=== PATIENT | female | born 1955 | race Caucasian/White ===

== ENCOUNTER 2019-01-03 06:12 | Day surgery (SDC) | payer MEDICARE, OTHER ==
[2019-01-03] MEDS ORDERED: IODIXANOL 320MG/ML 100 ML BOTTLE IV ONE (07:33)
[2019-01-03] MEDS ORDERED: LIDOCAINE HCL 1% 20ML VIAL (Pyxis) INJ ONE (07:33)
[2019-01-03] MEDS ORDERED: IOHEXOL-300 100 ML BOTTLE ONE (07:40)
[2019-01-03] MEDS ORDERED: FENTANYL CITRATE/PF 50MCG/ML 2ML VIAL ONE (07:45)
[2019-01-03] MEDS ORDERED: MIDAZOLAM HCL 2 MG/2 ML VIAL ONE (07:45)
[2019-01-03 07:48] LABS: HEMOGLOBIN 13.6 g/dL (12.0-16.0); MEAN CORPUSCULAR HEMOGLOBIN 32.1 pg (28.0-32.0); MEAN CORPUSCULAR VOLUME 94.5 fL (81.0-99.0); PLATELET 129 x1000/uL (130-400); RED BLOOD CELL COUNT 4.23 mill/uL (4.2-5.4); RED CELL DISTRIBUTION WIDTH 14.5 % (11.6-14.6)
[2019-01-03] MEDS ORDERED: CALC668T MT (08:20)
[2019-01-03] MEDS ORDERED: GABA-531 MT (08:20)
[2019-01-03] MEDS ORDERED: FURO80TA3 MT (08:20)
[2019-01-03] MEDS ORDERED: MULT-1146 MT (08:20)
[2019-01-03] MEDS ORDERED: INSLIS SUBCUT (08:20)
[2019-01-03] MEDS ORDERED: INSU100V36 SQ (08:20)
[2019-01-03] MEDS ORDERED: SPIR25TA6 MT (08:20)
[2019-01-03] MEDS ORDERED: CHOL200077 MT (08:20)
[2019-01-03] MEDS ORDERED: PRAV40TA58 MT (08:20)
[2019-01-03] MEDS ORDERED: LIRA0.6P2 SQ (08:22)
[2019-01-03 08:37] LABS: INR 1.1; PROTHROMBIN TIME 10.9 sec (9.6-11.0)
[2019-01-03] MEDS ORDERED: HEPARIN SODIUM 1,000 UNIT/1ML VIAL IV ONE (09:00)
[2019-01-03] MEDS ORDERED: NITROGLYCERIN 50MCG/ML 10ML VIAL (CATH LAB) IV ONE (09:00)
[2019-01-03] MEDS ORDERED: NICARDIPINE 100MCG/ML 10ML VIAL (CATH LAB) IV ONE (09:00)
[2019-01-03] MEDS ORDERED: ONDANSETRON HCL 4MG/2ML INJ IV PRN (09:30)
[2019-01-03] MEDS ORDERED: ACETAMINOPHEN 325MG TABLET PO PRN (09:30)
[2019-01-03] MEDS ORDERED: ATROPINE SULFATE 1MG/10ML SYR IV PRN (09:30)
== END 2019-01-03 14:00 | disposition home or self-care (01) ==
LOC: CCL 06:12
PROVIDERS: ATTEND Specialist
DX: R07.89 Other chest pain (principal); I25.10 Atherosclerotic heart disease of native coronary artery without angina pectoris; I12.0 Hypertensive chronic kidney disease with stage 5 chronic kidney disease or end stage renal disease; E11.22 Type 2 diabetes mellitus with diabetic chronic kidney disease; N18.6 End stage renal disease; E88.81 Metabolic syndrome and other insulin resistance; E78.5 Hyperlipidemia, unspecified; Z79.4 Long term (current) use of insulin; Z79.899 Other long term (current) drug therapy; Z99.2 Dependence on renal dialysis; Z88.2 Allergy status to sulfonamides; Z88.8 Allergy status to other drugs, medicaments and biological substances; Z98.890 Other specified postprocedural states
CPT/HCPCS: 36415; 80048; 85027; 85610; 93458; 99152; 99153; C1769; C1887; C1893; J1644; J2250; J3010; J3490; Q9967

== ENCOUNTER 2020-09-02 14:29 | Inpatient (IN) | payer MEDICARE, OTHER ==
[~2020-09-02] VITALS: Ht 170.2 cm; Wt 98.5 kg
[~2020-09-02 14:29] MED LIST: CALC668T MT; CHOL200077 MT; FURO80TA3 MT; GABA-532 MT; INSLIS SUBCUT; INSU100V36 SQ; LIRA0.6P2 SQ; MULT-1146 MT; PRAV40TA58 MT; SPIR25TA6 MT
[2020-09-02] MEDS ORDERED: MORPHINE SULFATE 4 MG/ML CPJ (NOT FOR IM USE) IV STA (15:10)
[2020-09-02] MEDS ORDERED: ONDANSETRON HCL 4MG/2ML INJ IV ONE (15:15)
[2020-09-02 17:25] LABS: BASOPHILS % 0.4 % (0.0-2.0); EOSINOPHILS % 0.5 % (0.0-5.0); HEMATOCRIT. 33.7 % (36.0-48.0); HEMOGLOBIN. 11.5 g/dL (12.0-16.0); MEAN CORPUSCULAR HEMOGLOBIN 31.9 pg (28.0-32.0); MEAN CORPUSCULAR VOLUME 93.1 fL (81.0-99.0); MEAN PLATELET VOLUME 9.9 fl (7.4-10.4); MONOCYTES % 3.1 % (2.0-8.0); PLATELET 174 x1000/uL (130-400); RED BLOOD CELL COUNT 3.62 mill/uL (4.2-5.4); RED CELL DISTRIBUTION WIDTH 14.9 % (11.6-14.6)
[2020-09-02] MEDS ORDERED: HYDROCODONE/ACETAMINOPHEN 5/325MG TABLET PO ONE (19:45)
[2020-09-02] MEDS ORDERED: ACETAMINOPHEN 325MG TABLET PO PRN ×2 (21:45)
[2020-09-02] MEDS ORDERED: HYDRALAZINE 20MG/ML VIAL IV PRN (21:45)
[2020-09-02] MEDS ORDERED: ONDANSETRON HCL 4MG/2ML INJ IV PRN (21:45)
[2020-09-02] MEDS ORDERED: DIPHENHYDRAMINE 50MG/ML VIAL IV PRN (21:45)
[2020-09-02] MEDS ORDERED: ZOLPIDEM TARTRATE 5MG TABLET PO PRN (21:45)
[2020-09-02] MEDS ORDERED: DEXTROSE 50% WATER 50ML SYRINGE IV PRN (21:45)
[2020-09-02] MEDS ORDERED: CLONIDINE 0.1MG TABLET PO PRN (21:45)
[2020-09-02] MEDS ORDERED: MAGNESIUM/ALUMINUM HYDROXIDE/SIMETHICONE 30ML UDC PO PRN (21:45)
[2020-09-02] MEDS ORDERED: HYDROMORPHONE HCL/PF 2MG/ML CPJ IV PRN (22:00)
[2020-09-02] MEDS ORDERED: IOHEXOL-300 100 ML BOTTLE ONE (22:20)
[2020-09-02 23:29] LABS: CLARITY URINE TURBID (CLEAR); COLOR URINE YELLOW (YELLOW); KETONES URINE TRACE (NEGATIVE); LEUKOCYTE ESTERASE URINE 3+ (NEGATIVE); NITRITE URINE NEGATIVE (NEGATIVE); OCCULT BLOOD URINE 3+ (NEGATIVE); PROTEIN URINE 4+ (NEGATIVE)
[2020-09-03 02:25] VITALS: BP 162/73
[2020-09-03 03:00] VITALS: BP 162/73
[2020-09-03 04:00] VITALS: BP 144/62
[2020-09-03] MEDS ORDERED: LOSA100T32 MT (04:56)
[2020-09-03] MEDS: BLOOD SUGAR DIAGNOSTIC STRIP TEST SCH ×4 (06:30→21:00)
[2020-09-03] MEDS: GABAPENTIN 300MG CAPSULE PO SCH ×3 (06:30→22:08)
[2020-09-03 08:00] VITALS: BP 149/61
[2020-09-03] MEDS: FOLIC ACID/VITAMIN B COMP W-C TABLET PO SCH (09:16)
[2020-09-03] MEDS: LOSARTAN POTASSIUM 100 MG TABLET PO SCH (09:16)
[2020-09-03] MEDS: PANTOPRAZOLE SODIUM 40 MG/VIAL IV SCH (09:16)
[2020-09-03] MEDS: INSULIN LISPRO 100 UNITS/ML SUBCUT SCH ×4 (09:23→21:00)
[2020-09-03] MEDS ORDERED: LACTULOSE 20G/30ML UDC PO PRN (10:30)
[2020-09-03] MEDS ORDERED: CEFTRIAXONE 1 G PREMIX 50 ML IV SCH (10:30)
[2020-09-03 12:00] VITALS: BP 125/78
[2020-09-03] MEDS: DOCUSATE SODIUM 100MG CAPSULE PO SCH ×2 (12:38→18:28)
[2020-09-03 13:51] LABS: HEPATITIS B SURFACE ANTIGEN NEGATIVE
[2020-09-03] MEDS: CEFTRIAXONE 1,000 MG in DEXTROSE 5% WATER 50 ML IV SCH (14:05)
[2020-09-03 14:21] LABS: HEPATITIS A AB IGM NEGATIVE (NEGATIVE)
[2020-09-03 20:00] VITALS: BP 152/85
[2020-09-04] VITALS: BP 149/63
[2020-09-04 04:00] VITALS: BP 146/69
[2020-09-04] MEDS: GABAPENTIN 300MG CAPSULE PO SCH ×2 (06:14→13:10)
[2020-09-04 07:18] LABS: BASOPHILS % 0.3 % (0.0-2.0); EOSINOPHILS % 2.4 % (0.0-5.0); HEMATOCRIT. 33.4 % (36.0-48.0); HEMOGLOBIN. 11.3 g/dL (12.0-16.0); MEAN CORPUSCULAR HEMOGLOBIN 31.7 pg (28.0-32.0); MEAN CORPUSCULAR VOLUME 93.6 fL (81.0-99.0); MEAN PLATELET VOLUME 10.1 fl (7.4-10.4); MONOCYTES % 8.6 % (2.0-8.0); NEUTROPHILS % 64.7 % (40.0-76.0); PLATELET 157 x1000/uL (130-400); RED BLOOD CELL COUNT 3.56 mill/uL (4.2-5.4); RED CELL DISTRIBUTION WIDTH 14.8 % (11.6-14.6)
[2020-09-04] MEDS: BLOOD SUGAR DIAGNOSTIC STRIP TEST SCH ×2 (07:20→12:18)
[2020-09-04 07:31] LABS: PHOSPHORUS 4.1 mg/dL (2.5-4.9)
[2020-09-04] MEDS: INSULIN LISPRO 100 UNITS/ML SUBCUT SCH ×2 (07:50→12:44)
[2020-09-04 08:16] VITALS: BP 130/53
[2020-09-04] MEDS: PANTOPRAZOLE SODIUM 40 MG/VIAL IV SCH (09:31)
[2020-09-04] MEDS: DOCUSATE SODIUM 100MG CAPSULE PO SCH (09:31)
[2020-09-04] MEDS: FOLIC ACID/VITAMIN B COMP W-C TABLET PO SCH (09:31)
[2020-09-04] MEDS: LOSARTAN POTASSIUM 100 MG TABLET PO SCH (09:31)
[2020-09-04 12:22] VITALS: BP 142/56
[2020-09-04] MEDS: CEFTRIAXONE 1,000 MG in DEXTROSE 5% WATER 50 ML IV SCH (13:09)
[2020-09-04 16:26] VITALS: BP 20/143
[2020-09-04 16:34] VITALS: BP 146/60
[2020-09-05] MEDS ORDERED: FAMOTIDINE 20MG TABLET PO SCH (09:00)
== END 2020-09-04 17:00 | disposition home or self-care (01) | DRG 871 ==
LOC: ER 14:29 → 6WST 21:11 → EDBEDREQSVC 22:18 → ENRESERV 23:11 → 6WST 09-03 02:30
PROVIDERS: ADMIT Internal Medicine; ATTEND Internal Medicine
PROC: 5A1D70Z Performance of Urinary Filtration, Intermittent, Less than 6 Hours Per Day (ICD-10-PCS; principal; 2020-09-03)
DX: A41.9 Sepsis, unspecified organism (principal); N18.6 End stage renal disease; N13.6 Pyonephrosis; I12.0 Hypertensive chronic kidney disease with stage 5 chronic kidney disease or end stage renal disease; I25.10 Atherosclerotic heart disease of native coronary artery without angina pectoris; E78.00 Pure hypercholesterolemia, unspecified; E21.1 Secondary hyperparathyroidism, not elsewhere classified; E78.5 Hyperlipidemia, unspecified; K57.30 Diverticulosis of large intestine without perforation or abscess without bleeding; D63.8 Anemia in other chronic diseases classified elsewhere; E11.22 Type 2 diabetes mellitus with diabetic chronic kidney disease; Z88.2 Allergy status to sulfonamides; Z88.8 Allergy status to other drugs, medicaments and biological substances; Z79.899 Other long term (current) drug therapy; Z79.4 Long term (current) use of insulin; Z82.49 Family history of ischemic heart disease and other diseases of the circulatory system; Z99.2 Dependence on renal dialysis
CPT/HCPCS: 36415; 74177; 76770; 80048; 81003; 82962; 83735; 84100; 85025; 86705; 86709; 86803; 87340; 99285; C9113; J0696; J1815; J2270; J2405; J7060; Q9967